=== PATIENT | female | born 1980 | race African-American/Black ===

== ENCOUNTER 2017-11-26 08:47 | Emergency (ER) | payer OTHER ==
[2017-11-26] MEDS ORDERED: IBUPROFEN 400 MG TABLET PO STA (10:08)
[2017-11-26] MEDS ORDERED: BENZONATATE 100 MG CAPSULE PO STA (10:08)
[2017-11-26] MEDS ORDERED: guaiFENesin/DEXTROMETHORPHAN 10 ML UDC PO STA (10:08)
--- NOTE | 2017-11-26 10:11 | ED Physician Documentation ---
History of Present Illness - Stated complaint Stated Complaint: CHEST TIGHTNESS/EAR PX/COUGH - Chief complaint Chief Complaint: Resp - Additonal information Additional information: hx from pt healthy 37 y/o f AD [place] denies preg to ER with fever myalgia sore throat ear pain cough pleuritic CP with cough no GI sx no leg swelling no recent travel no recent surgery hospitalization Review of Systems Constitutional: reports: Fever, Myalgias, Fatigue Ears: reports: Ear pain Nose: reports: Congestion Throat: reports: Sore throat Cardiac: reports: Chest pain / pressure Respiratory: reports: Dyspnea, Cough GI: denies: Abdominal Pain, Nausea, Vomiting, Diarrhea : denies: Now EGA Musculoskeletal: denies: Extremity swelling PD PAST MEDICAL HISTORY - Past Medical History Neuro: Headache/migraine - Past Surgical History Past Surgical History: Yes /[employer]: Breast reduction - Present Medications Home Medications: Ambulatory Orders Medication Instructions Recorded Confirmed Promethazine [Phenergan] 25 mg PO Q6H PRN #10 tab 07/02/16 Albuterol Sulfate [Proair Hfa 2 puffs INH Q4H PRN #1 inhaler 11/26/17 Inhaler] Benzonatate [Tessalon] 100 mg PO TID PRN #20 capsule 11/26/17 Fluticasone [Flonase] 1 sprays RADHA BID PRN #1 bottle 11/26/17 Ibuprofen [Motrin] 400 mg PO Q6H PRN #30 tablet 11/26/17 guaiFENesin/DEXTROMETHORPHAN 10 ml PO Q6H PRN #120 ml 11/26/17 [Robitussin Dm] - Allergies Allergies/Adverse Reactions: Allergies Allergy/AdvReac Type Severity Reaction Status Date / Time No Known Drug Allergies Allergy Verified 07/02/16 19:17 - Social History Does the pt smoke?: No Smoking Status: Never smoker Does the pt drink ETOH?: Yes Does the pt have substance abuse?: No - Immunizations Immunizations are current?: Yes - POLST Patient has POLST: No PD ED PE NORMAL - Vitals Vital signs reviewed: Yes - Neck Neck: Supple, no meningeal sign - Cardiac Cardiac: RRR - Respiratory Respiratory: No respiratory distress, Other (ronchi on L) - Abdomen Abdomen: Soft - Extremities Extremities: No deformity, No edema, No calf tenderness / cord - Neuro Neuro: Alert and oriented X 3 Results - Vitals Vitals: Vital Signs - 24 hr 11/26/17 09:02 Temperature 37.5 C Heart Rate 87 Respiratory 17 Rate Blood Pressure 122/86 H O2 Saturation 95 Oxygen O2 Source Room air - Labs Labs: Laboratory Tests 11/26/17 11/26/17 09:05 10:15 Influenza A (Rapid) Negative Influenza B (Rapid) Negative Group A Strep Rapid Negative - Rads (name of study) CXR Radiology: See rad report (no acute) Departure - Departure Disposition: 01 Home, Self Care Clinical Impression: Bronchitis Condition: Good Instructions: ED Upper Resp Infec No Abx Tx Follow-Up: MARIA C HURST [Primary Care Provider] - Prescriptions: Albuterol Sulfate [Proair Hfa Inhaler] 2 puffs INH Q4H PRN #1 inhaler PRN Reason: cough soa chest tightness Benzonatate [Tessalon] 100 mg PO TID PRN #20 capsule PRN Reason: to ease cough Fluticasone [Flonase] 1 sprays RADHA BID PRN #1 bottle PRN Reason: allergies guaiFENesin/DEXTROMETHORPHAN [Robitussin Dm] 10 ml PO Q6H PRN #120 ml PRN Reason: Cough Ibuprofen [Motrin] 400 mg PO Q6H PRN #30 tablet PRN Reason: Pain Comments: Surprisingly the xray does not show pneumonia And the strep and flu swabs came back negative This does not mean you are not sick But is indicates the infection is viral and antibiotics won't help But I have prescribed medications to ease your symptoms and wrote a note for work so you can stay home and rest and recover Forms: Activity restrictions
--- NOTE | 2017-11-26 10:45 | XRAY Report ---
EXAM: CHEST RADIOGRAPHY EXAM DATE: 11/26/2017 10:27 AM. CLINICAL HISTORY: Cough chest pain. COMPARISON: None. TECHNIQUE: 2 views. FINDINGS: Lungs/Pleura: No focal opacities evident. No pleural effusion. No pneumothorax. Normal volumes. Mediastinum: Heart and mediastinal contours are unremarkable. Other: Negative bony structures. IMPRESSION: Negative 2-view chest radiography. [facility] Referring Provider Line: [phone] SITE ID: [id number]
[2017-11-26 12:55] VITALS: BP 132/64
== END 2017-11-26 12:53 | disposition home or self-care (01) ==
LOC: ED 08:47
DX: J40 Bronchitis, not specified as acute or chronic (principal)
CPT/HCPCS: 71046; 87070; 87275; 87276; 87430; 99283; A9270